=== PATIENT | male | born 1980 ===

== ENCOUNTER 2018-09-19 10:37 | Emergency (ER) | payer OTHER ==
--- NOTE | 2018-09-19 14:28 | UC ---
General HPI - HPI Summary HPI Summary: 38 yo WM h/o DM p/w c/o anxiety and tension ELDER and wants to check his BP. Stated his SBP was in 140s , denies n/v and no previous high BP when dx'd with DM last year - History of Current Complaint Chief Complaint: UCHeadache Stated Complaint: HEADACHE Time Seen by Provider: 09/19/18 12:47 Hx Obtained From: Patient Onset/Duration: Sudden Onset Onset Severity: Moderate Current Severity: Moderate Pain Intensity: 0 - Allergy/Home Medications Allergies/Adverse Reactions: Allergies Allergy/AdvReac Type Severity Reaction Status Date / Time No Known Allergies Allergy Verified 09/19/18 12:56 Home Medications: Home Medications metFORMIN* [Glucophage 500 MG TAB *] 500 mg PO BID 09/19/18 [History Confirmed 09/19/18] PMH/Surg Hx/FS Hx/Imm Hx - Surgical History Surgical History: None - Social History Alcohol Use: Occasionally Substance Use Type: Marijuana Smoking Status (MU): Never Smoked Tobacco Review of Systems All Other Systems Reviewed And Are Negative: Yes - Comments Additional Review of Systems Comments: Constitutional: Negative Skin: Negative Eyes: Negative ENT: Negative Cardiovascular: elevated BP Respiratory: Negative Gastrointestinal: Negative Genitourinary: Negative Musculoskeletal: Negative Neurological: posterior ELDER Psychological: Normal All Other Systems Reviewed And Are Negative: Yes Physical Exam - Summary Physical Exam Summary: Vital Signs Reviewed: Yes Appearance: Positive: No Pain Distress Skin: Positive: Warm Head/Face: Positive: Normal Head/Face Inspection Eyes: Positive: Normal ENT: Positive: Normal ENT inspection Neck: Positive: Supple Respiratory/Lung Sounds: Positive: Clear to Auscultation. Negative: Rales, Rhonchi, Wheezes Cardiovascular: Positive: Normal, RRR, S1, S2 Abdomen Description: Positive: Nontender Musculoskeletal: Positive: Normal Neurological: Positive: Normal, CN Intact II-III Psychiatric: Positive: Normal, Affect/Mood Appropriate Vital Signs: Initial Vital Signs Temp 36.6 C 09/19/18 12:53 Pulse 57 09/19/18 12:53 Resp 16 09/19/18 12:53 BP 149/91 09/19/18 12:53 Pulse Ox 100 09/19/18 12:53 Course/Dx - Course Course Of Treatment: repeat BP was 134/76, pt more anxious, WKG - SB at 56 NO STT abnormalities. Magdi basic labs and HgA1C and would like copies of all so that he has baseline information when he establishes care with his PCP - Diagnoses Provider Diagnosis: Elevated blood pressure reading, Diabetes mellitus, Anxiety about health, Tension headache Discharge - Sign-Out/Discharge Documenting (check all that apply): Patient Departure All imaging exams completed and their final reports reviewed: Yes - Discharge Plan Condition: Stable Disposition: HOME Additional Instructions: follow up with PCP, call back tomorrow or next week for your blood test results - Billing Disposition and Condition Condition: STABLE Disposition: Home
[2018-09-19 19:02] LABS: Albumin 4.7 g/dL (3.2-5.2); Albumin/Globulin Ratio 1.5 (1-3); BUN/Creatinine Ratio 23.5 (8-20); Calcium 9.6 mg/dL (8.6-10.3); EGFR African American 158.8 (>60); EGFR Non-African American 131.2 (>60); Globulin 3.2 g/dL (2-4); Potassium 3.9 mmol/L (3.5-5.0); Total Bilirubin 0.7 mg/dL (0.2-1.0); Total Protein 7.9 g/dL (6.4-8.9)
== END 2018-09-19 14:48 | disposition home or self-care (01) ==
LOC: UCEAST 10:37
DX: G44.209 Tension-type headache, unspecified, not intractable (principal); E11.9 Type 2 diabetes mellitus without complications; R03.0 Elevated blood-pressure reading, without diagnosis of hypertension; F41.9 Anxiety disorder, unspecified; Z79.84 Long term (current) use of oral hypoglycemic drugs
CPT/HCPCS: 36415; 80053; 81003; 83036; 93005; 99201; G0463